=== PATIENT | male | born 1985 | race African-American/Black ===

== ENCOUNTER 2018-12-25 22:08 | Emergency (ER) | payer MEDICAID, OTHER ==
[~2018-12-25] VITALS: Ht 180.3 cm; Wt 90.7 kg
[~2018-12-25 22:08] MED LIST: ALBU8.5H8; [UNRECOGNIZED DRUG - CODE] IM
[2018-12-25] MEDS ORDERED: MORPHINE SULFATE INJ 4 MG/ML DISP.SYRIN ONE (22:24)
[2018-12-25] MEDS ORDERED: ONDANSETRON HCL/PF 4 MG/2 ML VIAL ONE (22:24)
[2018-12-25] MEDS ORDERED: ONDANSETRON HCL/PF 4 MG/2 ML VIAL IVP ONE (22:30)
[2018-12-25] MEDS ORDERED: MORPHINE SULFATE INJ 2 MG/ML DISP.SYRIN IV ONE (22:30)
[2018-12-25] MEDS ORDERED: IV NS 0.9% 1,000 ML BAG IV ONE (22:30)
[2018-12-25 22:39] LABS: BASOPHILS # (AUTO) 0.1 /CMM (0.0-0.2); BASOPHILS % (AUTO) 0.8 % (0.0-2.0); EOSINOPHILS % (AUTO) 5.1 % (0.0-6.0); HEMATOCRIT 41 % (39-51); HEMOGLOBIN 13.6 g/dL (13.5-17.5); LYMPHOCYTES # (AUTO) 1.7 /CMM (0.8-4.8); LYMPHOCYTES % (AUTO) 22.2 % (20.0-44.0); MEAN CORPUSCULAR HGB CONC 33 g/dl (31.0-36.0); MEAN CORPUSCULAR VOLUME 90 fL (80-96); MONOCYTES # (AUTO) 0.6 /CMM (0.1-1.30); MONOCYTES % (AUTO) 7.9 % (2.0-12.0); NEUTROPHILS # (AUTO) 4.8 /CMM (1.8-8.9); PLATELET COUNT (AUTO) 256 /CMM (150-450); RED BLOOD CELL COUNT(AUTO) 4.52 MIL/uL (4.5-6.0); WHITE BLOOD COUNT (AUTO) 7.6 K/uL (4.3-11.0)
[2018-12-25 22:49] LABS: CALCIUM, SERUM 8.7 mg/dL (8.5-10.1); POTASSIUM 4.4 mmol/L (3.5-5.1)
--- NOTE | 2018-12-25 23:22 | NUR ---
CALLED IZZY FOR READ
[2018-12-26] MEDS ORDERED: HYDROCODONE/APAP 5/325MG 1 EACH TABLET PO ONE
[2018-12-26 00:15] VITALS: BP 118/82
--- NOTE | 2018-12-26 00:15 | NUR ---
Patient discharged to home in stable condition. Written and verbal after care instructions given. Patient verbalizes understanding of instruction.
== END 2018-12-26 00:16 | disposition home or self-care (01) ==
LOC: ER 22:09
DX: S90.01XA Contusion of right ankle, initial encounter (principal); S90.31XA Contusion of right foot, initial encounter; F41.9 Anxiety disorder, unspecified; J45.909 Unspecified asthma, uncomplicated; F17.200 Nicotine dependence, unspecified, uncomplicated; Z79.899 Other long term (current) drug therapy; V23.4XXA Motorcycle driver injured in collision with car, pick-up truck or van in traffic accident, initial encounter; Y93.55 Activity, bike riding; Y92.89 Other specified places as the place of occurrence of the external cause; Y99.8 Other external cause status
CPT/HCPCS: 29515; 36415; 73610; 73630; 80048; 85025; 85730; 96374; 96375; 99284; J2270; J2405; J7030

== ENCOUNTER 2019-01-24 21:02 | Emergency (ER) | payer MEDICAID ==
[~2019-01-24] VITALS: Ht 180.3 cm; Wt 93.0 kg
--- NOTE | 2019-01-24 21:13 | NUR ---
XRAY AT BEDSIDE
[2019-01-24] MEDS ORDERED: OLANZAPINE 10 MG VIAL IM ONE ×2 (21:21→21:30)
[2019-01-24] MEDS ORDERED: LORAZEPAM INJ 2 MG/ML VIAL ONE (21:22)
--- NOTE | 2019-01-24 21:25 | NUR ---
PT AAOX4. AMBULATORY. PT C/O R WRIST PAIN. ALSO PT STATED HE STARTED NEW PSYCH MEDS YESTERDAY. ALSO C/O "UNCONTROLABLE ANGER." PT IS ADGITATED AND PACING THROUGH THE E.D. -SI, -HI. RR EVEN AND UNLABORED. NO ACUTE DISTRESS NOTED.
[2019-01-24] MEDS ORDERED: LORAZEPAM INJ 2 MG/ML VIAL IM ONE (21:30)
--- NOTE | 2019-01-24 21:30 | NUR ---
PT BELONGINGS COLLECTED.
--- NOTE | 2019-01-24 21:45 | NUR ---
PT MEDICATED. PT IS COOPERATIVE.
--- NOTE | 2019-01-24 21:45 | NUR ---
Spoke to pt -SI, -HI
--- NOTE | 2019-01-24 21:50 | NUR ---
URINE COLLECTED AND SENT TO LAB
--- NOTE | 2019-01-24 21:54 | NUR ---
PT COAPERATIVE. IN BED COMFORTABLY. NO ACUTE DISTRESS.
--- NOTE | 2019-01-24 21:57 | NUR ---
[facility] SPEAKING TO PT'S GIRLFRIEND.
--- NOTE | 2019-01-24 22:04 | NUR ---
[employer] AT BEDSIDE SPEAKING TO PT
--- NOTE | 2019-01-24 22:16 | NUR ---
GIRLFRIEND AT BEDSIDE. VSS.
--- NOTE | 2019-01-24 22:19 | NUR ---
NEONATAL SOCIAL WORKER AT BEDSIDE FOR LAB COLLECTION
[2019-01-24 22:29] LABS: BASOPHILS # (AUTO) 0.1 /CMM (0.0-0.2); BASOPHILS % (AUTO) 0.6 % (0.0-2.0); EOSINOPHILS % (AUTO) 0.1 % (0.0-6.0); HEMATOCRIT 44 % (39-51); HEMOGLOBIN 14.4 g/dL (13.5-17.5); LYMPHOCYTES # (AUTO) 2.2 /CMM (0.8-4.8); LYMPHOCYTES % (AUTO) 16.5 % (20.0-44.0); MEAN CORPUSCULAR HGB CONC 33 g/dl (31.0-36.0); MEAN CORPUSCULAR VOLUME 90 fL (80-96); MONOCYTES # (AUTO) 1.5 /CMM (0.1-1.30); MONOCYTES % (AUTO) 11.2 % (2.0-12.0); NEUTROPHILS # (AUTO) 9.8 /CMM (1.8-8.9); NEUTROPHILS % (AUTO) 71.6 % (43.0-81.0); PLATELET COUNT (AUTO) 307 /CMM (150-450); RED BLOOD CELL COUNT(AUTO) 4.95 MIL/uL (4.5-6.0); WHITE BLOOD COUNT (AUTO) 13.6 K/uL (4.3-11.0)
[2019-01-24 22:32] LABS: APPEARANCE,URINE Clear (CLEAR); BILIRUBIN,URINE SMALL (NEGATIVE); BLOOD, URINE Negative Ery/uL (NEGATIVE); COLOR,URINE Yellow (YELLOW); KETONES,URINE Negative (NEGATIVE); LEUKOCYTE ESTERASE ,URINE Negative (NEGATIVE); NITRITE, URINE Negative (NEGATIVE); PH,URINE 5.5 (5.0-8.0); PROTEIN,URINE Trace mg/dl (NEGATIVE); UGLUCOSE Negative (NEGATIVE); UROBILINOGEN,URINE 0.2 EU/dL (0.2)
[2019-01-24 22:44] LABS: CALCIUM, SERUM 9.1 mg/dL (8.5-10.1); CARBON DIOXIDE 25 mmol/L (21-32); CHLORIDE 103 mmol/L (98-107); CREATININE 1.3 mg/dL (0.6-1.3); GLUCOSE 161 mg/dL (74-106); POTASSIUM 3.1 mmol/L (3.5-5.1); SODIUM SERUM 139 mmol/L (136-145); UREA NITROGEN, BLOOD 22 mg/dL (7-18)
[2019-01-24 22:50] LABS: ALANINE AMINOTRANSFERASE 62 U/L (12-78); ALBUMIN 3.8 g/dL (3.4-5.0); ALCOHOL, BLOOD < 3 mg/dL (0-0); ALKALINE PHOSPHATASE 86 U/L (46-116); ASPARTATE AMINOTRANSFERASE 34 U/L (15-37); BILIRUBIN,DIRECT 0.1 mg/dL (0.0-0.2); BILIRUBIN,TOTAL 0.5 mg/dL (0.2-1.0); TOTAL PROTEIN, SERUM 7.1 g/dL (6.4-8.2)
--- NOTE | 2019-01-24 22:59 | NUR ---
Patient is resting comfortably in bed. Easily aroused. Girlfriend at bedside
[2019-01-24 23:19] LABS: ACETAMINOPHEN 0 ug/ml (10-30); SALICYLATE 1.2 mg/dL (2.8-20.0)
[2019-01-24 23:33] LABS: BACTERIA,URINE Few /HPF (None Seen); RBC,URINE 0-2 /HPF (0-2); SPERM,URINE Few /HPF (None Seen); SQUAMOUS EPITHELIAL CELL,UR Rare /HPF (None Seen)
--- NOTE | 2019-01-24 23:34 | NUR ---
pt resting in bed. Girlfriend at bedside. vss
--- NOTE | 2019-01-25 00:07 | NUR ---
Patient is resting comfortably in bed using his phone. Easily aroused.
--- NOTE | 2019-01-25 00:10 | NUR ---
ART FROM [facility] TEAM AT BEDSIDE
--- NOTE | 2019-01-25 00:48 | NUR ---
Patient discharged to home in stable condition. Written and verbal after care instructions given. Patient verbalizes understanding of instruction and RX. pt ambulatory with a steady gait. Pt left the ED with his Girlfriend.
[2019-01-25 00:49] VITALS: BP 128/72
== END 2019-01-25 01:01 | disposition home or self-care (01) ==
LOC: ER 21:07
DX: S63.591A Other specified sprain of right wrist, initial encounter (principal); J45.909 Unspecified asthma, uncomplicated; R45.1 Restlessness and agitation; F10.10 Alcohol abuse, uncomplicated; F17.200 Nicotine dependence, unspecified, uncomplicated; F41.9 Anxiety disorder, unspecified; Y90.0 Blood alcohol level of less than 20 mg/100 ml; Z79.899 Other long term (current) drug therapy; Y08.89XA Assault by other specified means, initial encounter; Y93.89 Activity, other specified; Y92.89 Other specified places as the place of occurrence of the external cause; Y99.8 Other external cause status
CPT/HCPCS: 36415; 73110; 80048; 80076; 80305; 80307; 80329; 81001; 85025; 96372 ×2; 99284; G0480; J2060; J3490; 81000-TC

== ENCOUNTER 2019-02-27 13:26 | Emergency (ER) | payer MEDICAID ==
[~2019-02-27] VITALS: Ht 180.3 cm; Wt 88.5 kg
--- NOTE | 2019-02-27 14:03 | NUR ---
BIB FOR NECK PAIN AND NOTED WITH [facility] SINCE YESTERDAY. 12/06PS. TO ER BED 9, HOOKED TO MONITOR, CHANGED TO HOSP GOWN, PROVIDED W WARM BLANKET, AWAITING MD AVILA.
--- NOTE | 2019-02-27 14:40 | NUR ---
ASSISTANT PROPERTY MANAGER DEGRASSE AT BEDSIDE
[2019-02-27] MEDS ORDERED: LIDOCAINE 1%-EPI 1:100,000 50 ML VIAL IJ ONE (15:00)
[2019-02-27] MEDS ORDERED: LIDOCAINE 1%-EPI 1:100,000 20 ML VIAL ONE (15:04)
--- NOTE | 2019-02-27 15:08 | NUR ---
ACTIVATED SLUDGE ATTENDANT DEGRASSE AT BEDSIDE FOR I&D
--- NOTE | 2019-02-27 16:01 | NUR ---
WOUND CARE DONE
--- NOTE | 2019-02-27 16:10 | NUR ---
Patient discharged to home in stable condition. Written and verbal after care instructions given. Patient verbalizes understanding of instruction.
[2019-02-27 16:27] VITALS: BP 121/70
== END 2019-02-27 16:28 | disposition home or self-care (01) ==
LOC: ER 13:26
DX: L02.811 Cutaneous abscess of head [any part, except face] (principal); L03.811 Cellulitis of head [any part, except face]; J45.909 Unspecified asthma, uncomplicated; F10.10 Alcohol abuse, uncomplicated; F17.200 Nicotine dependence, unspecified, uncomplicated; Y90.9 Presence of alcohol in blood, level not specified; Z79.899 Other long term (current) drug therapy
CPT/HCPCS: 10060; 99283; A6403; A6407; J3490 ×2